=== PATIENT | female | born 1965 | race Caucasian/White ===

== ENCOUNTER → 2016-06-21 | Outpatient (CLI) | payer BC ==
[2016-06-21 15:45] LABS: ALT 36 U/L (9-52); AST 28 U/L (14-36); Alkaline Phosphatase 47 U/L (38-126); Anion Gap 14 mmol/L; Blood Urea Nitrogen 22 mg/dL (7-17); Calcium 10.1 mg/dL (8.4-10.2); Carbon Dioxide 28 mmol/L (22-30); Chloride 102 mmol/L (98-107); Glucose 96 mg/dL (74-99); Non-African American GFR(MDRD) >60 (>60 ml/min/1.73 sqM); Potassium 3.8 mmol/L (3.5-5.1); Sodium 144 mmol/L (137-145); Total Bilirubin 0.6 mg/dL (0.2-1.3); Total Protein 8.4 g/dL (6.3-8.2)
[2016-06-21 16:01] LABS: Follicle Stimulating Hormone 55.6 mIU/mL
[2016-06-22 15:47] LABS: Mis test requested (Blood) C-TELOPEPTIDE (CTx)
[2016-06-23 18:47] LABS: Creatinine Urine Random 26.1 mg/dL (20.0-320.0)
== END | disposition home or self-care (01) ==
LOC: LABWHC1 14:37
PROVIDERS: ATTEND Internal Medicine Endocrinology, Diabetes & Metabolism
DX: M80.80XA Other osteoporosis with current pathological fracture, unspecified site, initial encounter for fracture (principal); Z78.0 Asymptomatic menopausal state
CPT/HCPCS: 36415; 80053; 82306; 82523; 83001; 83970; 84443

== ENCOUNTER → 2016-08-23 | Outpatient (CLI) | payer BC ==
[2016-08-23 13:51] LABS: ALT 36 U/L (9-52); AST 29 U/L (14-36); Alkaline Phosphatase 62 U/L (38-126); Anion Gap 11 mmol/L; Blood Urea Nitrogen 29 mg/dL (7-17); Calcium 10.6 mg/dL (8.4-10.2); Carbon Dioxide 26 mmol/L (22-30); Chloride 103 mmol/L (98-107); Glucose 82 mg/dL (74-99); Non-African American GFR(MDRD) >60 (>60 ml/min/1.73 sqM); Potassium 4.2 mmol/L (3.5-5.1); Sodium 140 mmol/L (137-145); Total Bilirubin 0.5 mg/dL (0.2-1.3); Total Protein 7.7 g/dL (6.3-8.2)
== END | disposition home or self-care (01) ==
LOC: LABWHC1 12:46
PROVIDERS: ATTEND Internal Medicine Endocrinology, Diabetes & Metabolism
DX: M80.80XA Other osteoporosis with current pathological fracture, unspecified site, initial encounter for fracture (principal); Z78.0 Asymptomatic menopausal state
CPT/HCPCS: 36415; 80053; 83970

== ENCOUNTER → 2016-08-23 | Outpatient (CLI) | payer BC ==
[2016-08-23 13:42] LABS: Basophils % (A) 0 %; CH 32.4; CHCM 34.1; Eosinophils # (A) 0.1 k/uL (0-0.7); Eosinophils % (A) 1 %; HCT 38.1 % (34.0-46.0); HDW 2.08; HGB 13.2 gm/dL (11.4-16.0); Luc # (Auto) 0.13; Luc % (Auto) 2; Lymphocytes # (A) 2.2 k/uL (1.0-4.8); Lymphocytes % (A) 29 %; MCH 32.9 pg (25.0-35.0); MCHC 34.6 g/dL (31.0-37.0); MCV 95.3 fL (80.0-100.0); Monocytes # (A) 0.4 k/uL (0-1.0); Monocytes % (A) 6 %; Neutrophils # (A) 4.7 k/uL (1.3-7.7); Neutrophils % (A) 63 %; RDW 12.8 % (11.5-15.5); WBC 7.5 k/uL (3.8-10.6); WBC (Perox) 7.63
[2016-08-23 13:59] LABS: Appearance,Urine Clear (Clear); Bilirubin,Urine Negative (Negative); Glucose,Urine (UA) Negative (Negative); Ketones,Urine Negative (Negative); Leukocyte Esterase,Urine Negative (Negative); Nitrite,Urine Negative (Negative); PH, Urine 6.5 (5.0-8.0); Protein,Urine Negative (Negative); Specific Gravity,Urine 1.008 (1.001-1.035); UA Billing (MACRO vs. MICRO) CHEM; Urobilinogen,Urine <2.0 mg/dL (<2.0)
[2016-08-23 19:20] LABS: ANA w/Reflex to Titer NEGATIVE (NEGATIVE); RNP AB Interpretation NEGATIVE (NEGATIVE)
[2016-08-27 11:22] LABS: Immunofixation, Serum Interp see coimments
== END | disposition home or self-care (01) ==
LOC: LABWHC1 12:43
PROVIDERS: ATTEND Dermatology Clinical & Laboratory Dermatological Immunology
DX: L93.1 Subacute cutaneous lupus erythematosus (principal)
CPT/HCPCS: 36415; 81003; 84165; 85025; 86038; 86140; 86147; 86225; 86235; 86334; 87086

== ENCOUNTER → 2016-11-05 | Outpatient (CLI) | payer BC ==
[2016-11-05 16:21] LABS: ALT 36 U/L (9-52); AST 28 U/L (14-36); Alkaline Phosphatase 62 U/L (38-126); Anion Gap 9 mmol/L; Blood Urea Nitrogen 26 mg/dL (7-17); Calcium 10.1 mg/dL (8.4-10.2); Carbon Dioxide 28 mmol/L (22-30); Chloride 103 mmol/L (98-107); Glucose 69 mg/dL (74-99); Non-African American GFR(MDRD) >60 (>60 ml/min/1.73 sqM); Potassium 4.3 mmol/L (3.5-5.1); Sodium 140 mmol/L (137-145); Total Bilirubin 0.5 mg/dL (0.2-1.3); Total Protein 7.7 g/dL (6.3-8.2)
== END | disposition home or self-care (01) ==
LOC: LABWHC1 15:35
PROVIDERS: ATTEND Internal Medicine Endocrinology, Diabetes & Metabolism
DX: M81.0 Age-related osteoporosis without current pathological fracture (principal)
CPT/HCPCS: 36415; 80053; 82306

== ENCOUNTER → 2017-03-09 | Outpatient (CLI) | payer BC ==
[2017-03-09 13:18] LABS: ALT 32 U/L (9-52); AST 30 U/L (14-36); Albumin 4.9 g/dL (3.5-5.0); Alkaline Phosphatase 62 U/L (38-126); Anion Gap 11 mmol/L; Blood Urea Nitrogen 19 mg/dL (7-17); Calcium 10.7 mg/dL (8.4-10.2); Carbon Dioxide 30 mmol/L (22-30); Chloride 102 mmol/L (98-107); Glucose 92 mg/dL (74-99); Sodium 143 mmol/L (137-145); Total Bilirubin 0.5 mg/dL (0.2-1.3); Total Protein 7.9 g/dL (6.3-8.2)
[2017-03-09 13:21] LABS: Potassium 4.3 mmol/L (3.5-5.1)
== END | disposition home or self-care (01) ==
LOC: LABWHC1 12:13
PROVIDERS: ATTEND Internal Medicine Endocrinology, Diabetes & Metabolism
DX: M81.0 Age-related osteoporosis without current pathological fracture (principal)
CPT/HCPCS: 36415; 80053

== ENCOUNTER → 2017-05-04 | Outpatient (CLI) | payer BC ==
[2017-05-04 12:30] LABS: ALT 30 U/L (9-52); AST 30 U/L (14-36); Albumin 4.6 g/dL (3.5-5.0); Alkaline Phosphatase 54 U/L (38-126); Anion Gap 11 mmol/L; Blood Urea Nitrogen 21 mg/dL (7-17); Calcium 10.1 mg/dL (8.4-10.2); Carbon Dioxide 29 mmol/L (22-30); Chloride 102 mmol/L (98-107); Glucose 111 mg/dL (74-99); Potassium 4.2 mmol/L (3.5-5.1); Sodium 142 mmol/L (137-145); Total Bilirubin 0.5 mg/dL (0.2-1.3); Total Protein 7.6 g/dL (6.3-8.2)
[2017-05-04 16:58] LABS: Vitamin D 25 Hydroxy 54.6 ng/mL (30.0-100.0)
[2017-05-04 17:12] LABS: Parathyroid Hormone Intact 24.6 pg/mL (14.0-72.0)
== END | disposition home or self-care (01) ==
LOC: LABWHC1 11:51
PROVIDERS: ATTEND Internal Medicine Endocrinology, Diabetes & Metabolism
DX: M80.80XA Other osteoporosis with current pathological fracture, unspecified site, initial encounter for fracture (principal)
CPT/HCPCS: 36415; 80053; 82306; 83970

== ENCOUNTER → 2017-08-06 | Outpatient (CLI) | payer BC ==
[2017-08-06 08:45] LABS: Basophils % (A) 0 %; Eosinophils # (A) 0.1 k/uL (0-0.7); Eosinophils % (A) 2 %; HCT 36.6 % (34.0-46.0); HGB 12.4 gm/dL (11.4-16.0); Lymphocytes # (A) 1.7 k/uL (1.0-4.8); Lymphocytes % (A) 35 %; MCH 32.2 pg (25.0-35.0); MCHC 33.8 g/dL (31.0-37.0); Mean Platelet Volume 6.7; Monocytes # (A) 0.3 k/uL (0-1.0); Monocytes % (A) 6 %; Neutrophils # (A) 2.8 k/uL (1.3-7.7); Neutrophils % (A) 56 %; Platelet Count 232 k/uL (150-450); RBC 3.85 m/uL (3.80-5.40); RDW 12.4 % (11.5-15.5)
[2017-08-06 08:49] LABS: ALT 29 U/L (9-52); AST 30 U/L (14-36); Albumin 4.5 g/dL (3.5-5.0); Alkaline Phosphatase 43 U/L (38-126); Anion Gap 10 mmol/L; Blood Urea Nitrogen 29 mg/dL (7-17); Calcium 9.8 mg/dL (8.4-10.2); Carbon Dioxide 29 mmol/L (22-30); Chloride 103 mmol/L (98-107); Cholesterol 210 mg/dL (<200); Glucose 86 mg/dL (74-99); HDL Cholesterol 67 mg/dL (40-60); LDL Cholesterol,Calculated 131 mg/dL (0-99); Potassium 4.5 mmol/L (3.5-5.1); Sodium 142 mmol/L (137-145); Total Bilirubin 0.6 mg/dL (0.2-1.3); Total Protein 7.1 g/dL (6.3-8.2); Triglycerides 62 mg/dL (<150)
== END | disposition home or self-care (01) ==
LOC: LABWHC1 08:08
PROVIDERS: ATTEND Internal Medicine Endocrinology, Diabetes & Metabolism
DX: Z00.00 Encounter for general adult medical examination without abnormal findings (principal); R03.0 Elevated blood-pressure reading, without diagnosis of hypertension; M81.0 Age-related osteoporosis without current pathological fracture
CPT/HCPCS: 36415; 80053; 80061; 82306; 84443; 85025

== ENCOUNTER → 2017-09-27 | Outpatient (CLI) | payer BC ==
--- NOTE | 2017-10-07 11:52 | MM ---
Reason for exam: screening (asymptomatic). Last mammogram was performed 2 years and 4 months ago. History: Patient is postmenopausal. Family history of breast cancer in sister at age 55 and breast cancer in 2 maternal aunts. Excisional biopsy of the right breast, 1989. Physical Findings: A clinical breast exam by your physician is recommended on an annual basis and results should be correlated with mammographic findings. MG 3D Screening Mammo W/Cad Bilateral CC and MLO view(s) were taken. Prior study comparison: June 03, 2015, mammogram. June 01, 2014, mammogram. The breast tissue is extremely dense which could obscure a lesion on mammography. There is chronic nodularity bilaterally. No significant changes when compared with prior studies. ASSESSMENT: Benign, BI-RAD 2 RECOMMENDATION: Routine screening mammogram of both breasts in 1 year.
== END | disposition home or self-care (01) ==
LOC: RADMAMWWP 08:53
PROVIDERS: ATTEND Family Medicine
DX: Z12.31 Encounter for screening mammogram for malignant neoplasm of breast (principal)
CPT/HCPCS: 77063; 77067

== ENCOUNTER → 2018-01-30 | Outpatient (CLI) | payer BC ==
[2018-01-30 18:45] LABS: Albumin 4.7 g/dL (3.80-4.90); Albumin/Globulin Ratio 2.24 (1.20-2.10); Anion Gap 7.2 mmol/L (4.00-12.00); Calcium 9.8 mg/dL (8.7-10.3); Carbon Dioxide 27.8 mmol/L (21.6-31.8); Globulin 2.1 g/dL (2.1-3.7); Potassium 4.1 mmol/L (3.5-5.5); Total Bilirubin 0.4 mg/dL (0.2-1.2); Total Protein 6.8 g/dL (6.2-8.2)
[2018-01-30 18:48] LABS: Vitamin D 25 Hydroxy 46.3 ng/mL (30.0-100.0)
[2018-01-30 20:01] LABS: C-Peptide 1.69 ng/mL (0.81-3.85)
== END | disposition home or self-care (01) ==
LOC: LABWHC1 12:25
PROVIDERS: ATTEND Internal Medicine Endocrinology, Diabetes & Metabolism
DX: M81.0 Age-related osteoporosis without current pathological fracture (principal)
CPT/HCPCS: 36415; 80053; 82306; 84443; 84681

== ENCOUNTER → 2018-02-12 | Outpatient (CLI) | payer BC | LOC: LABWHC1 15:00 | PROVIDERS: ATTEND Internal Medicine Endocrinology, Diabetes & Metabolism | DX: M81.0 Age-related osteoporosis without current pathological fracture (principal) | CPT/HCPCS: 36415 ==

== ENCOUNTER → 2018-06-11 | Outpatient (CLI) | payer BC ==
--- NOTE | 2018-06-11 09:26 | BD ---
EXAMINATION TYPE: Axial Bone Density DATE OF EXAM: 06/11/2018 COMPARISON: NONE CLINICAL HISTORY: M 80.0 Height: 65 IN Weight: 138 LBS RISK FACTORS HISTORY OF: Surgery to Wrist (left): YES ARTHROPLASTY When: 2012 Family History of Osteoporosis: YES MOTHER Active: YES Postmenopausal woman: AGE 49 MEDICATIONS: Osteoporosis Medications: TYMLOS INJECTIONS DAILY INJECTIONS Which medication: TYMLOS INJECTIONS DAILY How Lon YEARS Additional Medications: CALCIUM, VIT D, TYMLOS DAILY INJECTION, MUSCLE RELAXER, MILOXICAM 15 MG EXAM MEASUREMENTS: Bone mineral densitometry was performed using the [employer] System. Bone mineral density as measured about the Lumbar spine is: ----- L1-L4(G/cm2): 1.124 T Score Values are as follows: ----- L2: -1.1 ----- L3: -0.4 ----- L4: -0.6 ----- L1-L4: -0.5 Bone mineral density BASELINE Bone mineral density about the R hip (g/cm2): 0.883 Bone mineral density about the L hip (g/cm2): 0.844 T Score values are as follows: -----R Neck: -1.1 -----L Neck: -1.4 -----R Total: -0.7 -----L Total: -0.9 Bone mineral density BASELINE IMPRESSION: Osteopenia (T Score between -2.5 and -1). There is slightly increased risk of fracture and the patient may be considered for treatment. Re-Screen 2-5 years. NOTE: T-SCORE=SD OF THE YOUNG ADULT MEAN.
== END | disposition home or self-care (01) ==
LOC: RADBDWWP 07:07
PROVIDERS: ATTEND Internal Medicine Endocrinology, Diabetes & Metabolism
DX: M85.851 Other specified disorders of bone density and structure, right thigh (principal); M85.852 Other specified disorders of bone density and structure, left thigh; M85.88 Other specified disorders of bone density and structure, other site
CPT/HCPCS: 77080

== ENCOUNTER → 2018-07-25 | Outpatient (CLI) | payer BC ==
[2018-07-25 16:15] LABS: Albumin 4.8 g/dL (3.80-4.90); Albumin/Globulin Ratio 2.09 (1.60-3.17); Anion Gap 9.5 mmol/L (4.00-12.00); Calcium 10.5 mg/dL (8.7-10.3); Carbon Dioxide 29.5 mmol/L (21.6-31.8); Globulin 2.3 g/dL (1.6-3.3); Potassium 4.2 mmol/L (3.5-5.5); Total Bilirubin 0.4 mg/dL (0.2-1.2); Total Protein 7.1 g/dL (6.2-8.2)
== END | disposition home or self-care (01) ==
LOC: LABWHC1 10:22
PROVIDERS: ATTEND Internal Medicine Endocrinology, Diabetes & Metabolism
DX: M81.0 Age-related osteoporosis without current pathological fracture (principal)
CPT/HCPCS: 36415; 80053; 82306; 82523

== ENCOUNTER → 2018-09-05 | Outpatient (CLI) | payer BC ==
[2018-09-05 18:09] LABS: African American GFR (CKD) 96.9 (60.0-200.0); Albumin 4.7 g/dL (3.80-4.90); Albumin/Globulin Ratio 2.14 (1.60-3.17); Anion Gap 6.5 mmol/L (4.00-12.00); BUN/Creat Ratio 33.75 Ratio (12.00-20.00); Calcium 9.8 mg/dL (8.7-10.3); Carbon Dioxide 30.5 mmol/L (21.6-31.8); Globulin 2.2 g/dL (1.6-3.3); Potassium 4.2 mmol/L (3.5-5.5); Total Bilirubin 0.5 mg/dL (0.2-1.2); Total Protein 6.9 g/dL (6.2-8.2)
== END | disposition home or self-care (01) ==
LOC: LABWHC1 14:12
PROVIDERS: ATTEND Internal Medicine Endocrinology, Diabetes & Metabolism
DX: E83.52 Hypercalcemia (principal)
CPT/HCPCS: 36415; 80053

== ENCOUNTER → 2018-10-07 | Outpatient (CLI) | payer BC ==
[2018-10-07 07:48] LABS: Basophils % (A) 1 %; Eosinophils # (A) 0.1 k/uL (0-0.7); Eosinophils % (A) 2 %; HCT 37.7 % (34.0-46.0); HGB 12.8 gm/dL (11.4-16.0); Lymphocytes # (A) 2.7 k/uL (1.0-4.8); Lymphocytes % (A) 54 %; MCH 32.2 pg (25.0-35.0); MCHC 33.9 g/dL (31.0-37.0); Monocytes # (A) 0.3 k/uL (0-1.0); Monocytes % (A) 7 %; Neutrophils # (A) 1.6 k/uL (1.3-7.7); Neutrophils % (A) 33 %; Platelet Count 259 k/uL (150-450); RBC 3.97 m/uL (3.80-5.40); RDW 12.7 % (11.5-15.5); WBC 4.9 k/uL (3.8-10.6)
[2018-10-07 08:08] LABS: Cholesterol 217 mg/dL (<200); HDL Cholesterol 52 mg/dL (40-60); LDL Cholesterol,Calculated 148 mg/dL (0-99); Triglycerides 85 mg/dL (<150)
--- NOTE | 2018-10-07 10:52 | MM ---
Reason for exam: screening (asymptomatic). Last mammogram was performed 1 year ago. History: Patient is postmenopausal. Family history of breast cancer in sister at age 55 and breast cancer in 2 maternal aunts. Excisional biopsy of the right breast, 1989. Took hormonal contraceptives for 3 years. Physical Findings: A clinical breast exam by your physician is recommended on an annual basis and results should be correlated with mammographic findings. MG 3D Screening Mammo W/Cad Bilateral CC and MLO view(s) were taken. Prior study comparison: September 27, 2017, bilateral MG 3d screening mammo w/cad. June 03, 2015, mammogram. The breast tissue is extremely dense which could obscure a lesion on mammography. There are benign appearing round calcifications in the right breast. There is no discrete abnormality. ASSESSMENT: Benign, BI-RAD 2 RECOMMENDATION: Routine screening mammogram of both breasts in 1 year.
== END | disposition home or self-care (01) ==
LOC: RADMAMWWP 07:11
PROVIDERS: ATTEND Family Medicine
DX: Z12.31 Encounter for screening mammogram for malignant neoplasm of breast (principal); E78.5 Hyperlipidemia, unspecified; R01.1 Cardiac murmur, unspecified
CPT/HCPCS: 77063; 77067; 80061; 85025

== ENCOUNTER → 2019-07-24 | Outpatient (CLI) | payer BC ==
[2019-07-24 17:29] LABS: African American GFR (CKD) 96.2 (60.0-200.0); Albumin 4.9 g/dL (3.80-4.90); Albumin/Globulin Ratio 2.23 (1.60-3.17); Anion Gap 8.4 mmol/L (4.00-12.00); BUN/Creat Ratio 17.5 Ratio (12.00-20.00); Calcium 9.5 mg/dL (8.7-10.3); Carbon Dioxide 28.6 mmol/L (21.6-31.8); Globulin 2.2 g/dL (1.6-3.3); Potassium 4.1 mmol/L (3.5-5.5); Total Bilirubin 0.5 mg/dL (0.2-1.2); Total Protein 7.1 g/dL (6.2-8.2)
== END | disposition home or self-care (01) ==
LOC: LABWHC1 10:06
PROVIDERS: ATTEND Internal Medicine Endocrinology, Diabetes & Metabolism
DX: M81.0 Age-related osteoporosis without current pathological fracture (principal)
CPT/HCPCS: 36415; 80053; 82306; 82523; 83970; 84443

== ENCOUNTER → 2019-09-09 | Day surgery (SDC) | payer BC ==
[2019-09-07 10:18] VITALS: BMI 20.9
[~2019-09-09] MED LIST: LIDOCAINE 1% (10MG/ML) FOR IV START INTRADERMA ONE; LIDOCAINE 1% INJ 10MG/ML (20 ML MDV) ONE; PROPOFOL 10 MG/ML 20 ML VIAL IV ONE
[2019-09-09 09:18] VITALS: RESP 16; TEMP 97.6
[2019-09-09] MEDS: LACTATED RINGERS 1,000 ML IV SCH ×2 (09:32→09:49)
--- NOTE | 2019-09-09 10:05 | P.PCN ---
Date of Procedure: 09/09/19 Procedure(s) Performed: BRIEF HISTORY: Patient is a 54-year-old pleasant female scheduled for an elective colonoscopy as a part of evaluation of prior history of colon polyps. Last colonoscopy was 5 years ago. PROCEDURE PERFORMED: Colonoscopy. PREOPERATIVE DIAGNOSIS: History of colon polyps. IV sedation per Anesthesia. PROCEDURE: After informed consent was obtained, the patient, was brought into the endoscopy unit. IV sedation was administered by Anesthesia under continuous monitoring. Digital rectal examination was normal. Initially the Olympus CF-160 flexible video colonoscope was then inserted in the rectum, gradually advanced into the cecum without any difficulty. Careful examination was performed as the scope was gradually being withdrawn. Ileocecal valve and the appendiceal orifice were visualized and appeared normal. Prep was excellent. Mucosa of the cecum, ascending colon, transverse colon, descending colon, sigmoid colon, and rectum appeared normal. Retroflexion was performed in the rectum and no lesions were seen. Scattered sigmoid diverticulosis. The patient tolerated the procedure well. IMPRESSION: Normal-appearing colon from rectum to cecum with no evidence of colorectal neoplasia Scattered sigmoid diverticulosis. RECOMMENDATIONS: Findings of this examination were discussed with the patient as well as a family. She was advised to have a repeat screening colonoscopy in 5 years from now because of prior history of colon polyps..
[2019-09-09 10:23] VITALS: BP 105/65; PULSE 58
== END ==
LOC: ORWHC2ENDO 08:50
PROVIDERS: ATTEND Internal Medicine Gastroenterology
DX: Z12.11 Encounter for screening for malignant neoplasm of colon (principal); K57.30 Diverticulosis of large intestine without perforation or abscess without bleeding; Z86.010 Personal history of colon polyps; Z96.60 Presence of unspecified orthopedic joint implant; Z79.1 Long term (current) use of non-steroidal anti-inflammatories (NSAID); Z88.1 Allergy status to other antibiotic agents
CPT/HCPCS: J2001; J2704; G0105

== ENCOUNTER → 2019-10-09 | Outpatient (CLI) | payer BC ==
--- NOTE | 2019-10-13 08:04 | MM ---
Reason for exam: screening (asymptomatic). Last mammogram was performed 1 year ago. History: Patient is postmenopausal. Family history of breast cancer in sister at age 55 and breast cancer in 2 maternal aunts. Excisional biopsy of the right breast, 1989. Took hormonal contraceptives for 3 years. Physical Findings: A clinical breast exam by your physician is recommended on an annual basis and results should be correlated with mammographic findings. MG 3D Screening Mammo W/Cad Bilateral CC and MLO view(s) were taken. Prior study comparison: October 07, 2018, bilateral MG 3d screening mammo w/cad. September 27, 2017, bilateral MG 3d screening mammo w/cad. The breast tissue is heterogeneously dense. This may lower the sensitivity of mammography. No significant changes when compared with prior studies. ASSESSMENT: Negative, BI-RAD 1 RECOMMENDATION: Routine screening mammogram of both breasts in 1 year. Patient should continue monthly self breast exams. A negative report should not preclude additional follow up of suspicious palpable abnormalities.
== END | disposition home or self-care (01) ==
LOC: RADMAMWWP 15:56
PROVIDERS: ATTEND Family Medicine
DX: Z12.31 Encounter for screening mammogram for malignant neoplasm of breast (principal)
CPT/HCPCS: 77063; 77067

== ENCOUNTER → 2020-09-03 | Outpatient (CLI) | payer BC ==
[2020-09-03 12:10] LABS: African American GFR (CKD) 95.5 (60.0-200.0); Albumin 4.6 g/dL (3.80-4.90); Anion Gap 7.6 mmol/L (4.00-12.00); BUN/Creat Ratio 21.25 Ratio (12.00-20.00); Calcium 9.9 mg/dL (8.7-10.3); Carbon Dioxide 30.4 mmol/L (21.6-31.8); Globulin 2.3 g/dL (1.6-3.3); Non-African American GFR(CKD) 82.4 (60.0-200.0); Potassium 4.5 mmol/L (3.5-5.5); Total Bilirubin 0.8 mg/dL (0.3-1.2); Total Protein 6.9 g/dL (6.2-8.2)
== END | disposition home or self-care (01) ==
LOC: LABWHC1 08:35
PROVIDERS: ATTEND Internal Medicine Endocrinology, Diabetes & Metabolism
DX: M81.0 Age-related osteoporosis without current pathological fracture (principal)
CPT/HCPCS: 36415; 80053; 82306; 82523; 83970; 84443

== ENCOUNTER → 2021-02-07 | Outpatient (CLI) | payer BC ==
--- NOTE | 2021-02-07 10:52 | BD ---
EXAMINATION TYPE: Axial Bone Density DATE OF EXAM: 02/07/2021 COMPARISON: NONE CLINICAL HISTORY: M80.0 Known osteoporosis Height: 5 FT 5 IN Weight: 125 FRAX RISK QUESTIONS: Alcohol (3 or more units per day): NO Family History (Parent hip fracture): NO Glucocorticoids (More than 3mos): NO (Ex: prednisone, prednisolone, methylprednisolone, dexamethasone, and hydrocortisone). History of Fracture in Adulthood: NO Secondary Osteoporosis: 1. Type 1 Diabetes: NO 2. Hyperthyroidism: NO 3. Menopause before 45: NO 4. Malnutrition: NO 5. Chronic liver disease: NO Rheumatoid Arthritis: NO Current Tobacco Use: NO RISK FACTORS HISTORY OF: Surgery to Spine/Hip(right/left)/Wrist (right/left): LEFT WRIST When: 2012 Family History of Osteoporosis: YES Active: YES Diet low in dairy products/other sources of calcium: NO Postmenopausal woman: YES Take estrogen and/or progesterone medications: NO Lost more than 2 inches in height since high school: YES Frequent falls: NO Poor Health: GOOD Hyperparathyroidism: NO Adrenal Insufficiency: NO MEDICATIONS: Additional Medications: MELOXICAM Additional History: EXAM MEASUREMENTS: Bone mineral densitometry was performed using the [employer] System. Bone mineral density as measured about the Lumbar spine is: ----- L1-L4(G/cm2): 1.165 T Score Values are as follows: ----- L2: -0.7 ----- L3: -0.1 ----- L4: 0.1 ----- L1-L4: -0.1 Bone mineral density has: INCREASED 4.4 % since study of: 2018 Bone mineral density about the R hip (g/cm2): 0.904 Bone mineral density about the L hip (g/cm2): 0.874 T Score values are as follows: -----R Neck: -1.0 -----L Neck: -1.2 -----R Total: -0.5 -----L Total: -0.8 Bone mineral density has: INCREASED 2.0 % since study of: 2019 IMPRESSION: Osteopenia (T Score between -2.5 and -1). There is slightly increased risk of fracture and the patient may be considered for treatment. Re-Screen 2-5 years. NOTE: T-SCORE=SD OF THE YOUNG ADULT MEAN.
== END | disposition home or self-care (01) ==
LOC: RADBDWWP 07:12
PROVIDERS: ATTEND Internal Medicine Endocrinology, Diabetes & Metabolism
DX: M85.89 Other specified disorders of bone density and structure, multiple sites (principal); Z78.0 Asymptomatic menopausal state
CPT/HCPCS: 77080

== ENCOUNTER → 2021-03-11 | Outpatient (CLI) | payer BC | END | disposition home or self-care (01) | LOC: LABWHC1 09:40 | PROVIDERS: ATTEND Internal Medicine Endocrinology, Diabetes & Metabolism | DX: E83.39 Other disorders of phosphorus metabolism (principal) | CPT/HCPCS: 36415; 80307; 84207 ==

== ENCOUNTER → 2021-04-24 | Outpatient (CLI) | payer BC ==
--- NOTE | 2021-04-25 10:00 | MM ---
Reason for exam: screening (asymptomatic). Last mammogram was performed 1 year and 7 months ago. History: Patient is postmenopausal. Family history of breast cancer in sister at age 55 and breast cancer in 2 maternal aunts. Excisional biopsy of the right breast, 1989. Took hormonal contraceptives for 3 years. Physical Findings: A clinical breast exam by your physician is recommended on an annual basis and results should be correlated with mammographic findings. MG 3D Screening Mammo W/Cad Bilateral CC and MLO view(s) were taken. Prior study comparison: October 09, 2019, bilateral MG 3d screening mammo w/cad. October 07, 2018, bilateral MG 3d screening mammo w/cad. The breast tissue is heterogeneously dense. This may lower the sensitivity of mammography. Benign appearing bilateral calcifications. No significant changes when compared with prior studies. ASSESSMENT: Benign, BI-RAD 2 RECOMMENDATION: Routine screening mammogram of both breasts in 1 year.
== END | disposition home or self-care (01) ==
LOC: RADMAMWWP 07:02
PROVIDERS: ATTEND Family Medicine
DX: Z12.31 Encounter for screening mammogram for malignant neoplasm of breast (principal); Z78.0 Asymptomatic menopausal state; Z80.3 Family history of malignant neoplasm of breast
CPT/HCPCS: 77063; 77067

== ENCOUNTER → 2021-08-24 | Outpatient (CLI) | payer BC ==
--- NOTE | 2021-08-24 13:07 | US ---
EXAMINATION TYPE: US transvaginal DATE OF EXAM: 08/24/2021 COMPARISON: NONE CLINICAL HISTORY: N95.0 POST MENOPAUSAL BLEEDING. TECHNIQUE: . Transvaginal sonographic images were obtained per physician's order. Date of LMP: na EXAM MEASUREMENTS: Uterus: 5.0 x 3.2 x 5.0 cm Endometrial Stripe: 0.2 cm Right Ovary: 1.4 x 0.7 x 1.2 cm Left Ovary: 17 x 0.9 x 1.1 cm 1. Uterus: anteverted seen with a [id number] calcified fibroid within the right mid uterine body 2. Endometrium: wnl 3. Right Ovary: wnl 4. Left Ovary: wnl 5. Bilateral Adnexa: wnl 6. Posterior cul-de-sac: no free fluid seen IMPRESSION: Calcified fibroid
== END | disposition home or self-care (01) ==
LOC: RADUSWWP 12:16
PROVIDERS: ATTEND Family Medicine
DX: D25.9 Leiomyoma of uterus, unspecified (principal)
CPT/HCPCS: 76830

== ENCOUNTER → 2021-10-21 | Outpatient (CLI) | payer BC ==
[2021-10-21 12:14] LABS: African American GFR (CKD) 103.1 (60.0-200.0); Albumin 4.5 g/dL (3.8-4.9); Albumin/Globulin Ratio 2.11 (1.60-3.17); Anion Gap 11.3 mmol/L (10.00-18.00); BUN/Creat Ratio 19.14 Ratio (12.00-20.00); Blood Urea Nitrogen 14.3 mg/dL (9.0-27.0); Carbon Dioxide 23.9 mmol/L (20.0-27.5); Globulin 2.1 g/dL (1.6-3.3); HDL Cholesterol 75.3 mg/dL (40.00-60.00); Non-African American GFR(CKD) 88.9 (60.0-200.0); Potassium 4.2 mmol/L (3.5-5.5); Total Bilirubin 0.3 mg/dL (0.30-1.20); Total Protein 6.6 g/dL (6.2-8.2); Triglycerides 39.5 mg/dL (0.00-149.00)
[2021-10-21 12:24] LABS: Chol/HDL Ratio 3.08 Ratio
== END | disposition home or self-care (01) ==
LOC: LABWHC1 09:02
PROVIDERS: ATTEND Family Medicine
DX: M81.0 Age-related osteoporosis without current pathological fracture (principal)
CPT/HCPCS: 36415; 80053; 80061; 82306; 83721

== ENCOUNTER → 2022-02-24 | Outpatient (CLI) | payer BC ==
[2022-02-24 17:03] LABS: African American GFR (CKD) 94.9 (60.0-200.0); Albumin 4.4 g/dL (3.8-4.9); Albumin/Globulin Ratio 1.91 (1.60-3.17); Anion Gap 9.4 mmol/L (10.00-18.00); BUN/Creat Ratio 18.25 Ratio (12.00-20.00); Blood Urea Nitrogen 14.6 mg/dL (9.0-27.0); Calcium 9.2 mg/dL (8.7-10.3); Carbon Dioxide 25.6 mmol/L (20.0-27.5); Globulin 2.3 g/dL (1.6-3.3); Non-African American GFR(CKD) 81.8 (60.0-200.0); Potassium 4.6 mmol/L (3.5-5.5); Total Bilirubin 0.3 mg/dL (0.30-1.20); Total Protein 6.7 g/dL (6.2-8.2)
== END | disposition home or self-care (01) ==
LOC: LABWHC1 09:23
PROVIDERS: ATTEND Internal Medicine Endocrinology, Diabetes & Metabolism
DX: M81.0 Age-related osteoporosis without current pathological fracture (principal)
CPT/HCPCS: 36415; 80053; 82523; 82652; 84443

== ENCOUNTER → 2022-06-06 | Outpatient (CLI) | payer BC ==
--- NOTE | 2022-06-06 12:25 | MM ---
Reason for Exam: Screening (asymptomatic). Last mammogram was performed 1 year(s) and 1 month(s) ago. Patient History: Menarche at age 13. First Full-Term at age 28. Postmenopausal. Patient used Hormonal Contraceptives for 3 years. 1989, Excisional Biopsy on the Right side. Maternal aunt had breast cancer, age 75. Maternal aunt had breast cancer, age 80. Sister had breast cancer, age 55. Risk Values: Shazia 5 year model risk: 2.7%. NCI Lifetime model risk: 15.9%. Prior Study Comparison: 10/07/2018 Bilateral Screening Mammogram, [facility]. 10/09/2019 Bilateral Screening Mammogram, [facility]. 04/24/2021 Bilateral Screening Mammogram, [facility]. Tissue Density: The breast tissue is heterogeneously dense. This may lower the sensitivity of mammography. Findings: Analyzed By CAD. There is no suspicious group of microcalcifications or new suspicious mass in either breast. Benign-appearing calcifications within both breasts. Overall Assessment: Benign, BI-RAD 2 Management: Screening Mammogram of both breasts in 1 year. A clinical breast exam by your physician is recommended on an annual basis and results should be correlated with mammographic findings. Electronically signed and approved by: Michel Horton D.O.
== END | disposition home or self-care (01) ==
LOC: RADMAMWWP 07:20
PROVIDERS: ATTEND Family Medicine
DX: Z12.31 Encounter for screening mammogram for malignant neoplasm of breast (principal); Z78.0 Asymptomatic menopausal state; Z80.3 Family history of malignant neoplasm of breast
CPT/HCPCS: 77063; 77067

== ENCOUNTER → 2022-08-11 | Outpatient (CLI) | payer BC ==
[2022-08-11 23:27] LABS: ALT 27 U/L (8-49); AST 31 U/L (13-35); Albumin 4.7 d/dL (3.8-4.9); Albumin/Globulin Ratio 1.81 Ratio (1.60-3.17); Alkaline Phosphatase 43 U/L (41-126); BUN/Creat Ratio 22.75 Ratio (12.00-20.00); Blood Urea Nitrogen 18.2 mg/dL (9.0-27.0); Calcium 10.3 mg/dL (8.7-10.3); Carbon Dioxide 25.5 mmol/L (21.6-31.8); Chloride 103 mmol/L (96-109); Globulin 2.6 d/dL (1.6-3.3); Glucose 81 mg/dL (70-110); Potassium 4.2 mmol/L (3.5-5.5); Sodium 141 mmol/L (135-145); Total Bilirubin 0.4 mg/dL (0.3-1.2); Total Protein 7.3 d/dL (6.2-8.2)
== END | disposition home or self-care (01) ==
LOC: LABWHC1 10:18
PROVIDERS: ATTEND Internal Medicine Endocrinology, Diabetes & Metabolism
DX: M81.0 Age-related osteoporosis without current pathological fracture (principal)
CPT/HCPCS: 36415; 80053; 82306; 82523; 83970; 84443

== ENCOUNTER → 2023-01-19 | Outpatient (CLI) | payer BC ==
[2023-01-21 11:07] LABS: Alternaria alternata IgE <0.10 kU/L; Aspergillus fumagatus IgE <0.10 kU/L; Birch IgE <0.10 kU/L; Cat Epith & Dander IgE <0.10 kU/L; Cladosporian herbarum IgE <0.10 kU/L; Cockroach IgE <0.10 kU/L; Dermato. farinae IgE <0.10 kU/L; Dog Dander IgE <0.10 kU/L; Elm IgE <0.10 kU/L; Maple (Box Elder) IgE <0.10 kU/L; Oak IgE <0.10 kU/L; Ragweed,Common IgE <0.10 kU/L; Red Top (Bentgrass) IgE <0.10 kU/L
== END | disposition home or self-care (01) ==
LOC: LABWHC1 09:56
PROVIDERS: ATTEND Otolaryngology Otolaryngology/Facial Plastic Surgery
DX: J31.0 Chronic rhinitis (principal)
CPT/HCPCS: 36415; 82785; 86003

== ENCOUNTER → 2023-02-08 | Outpatient (CLI) | payer BC ==
--- NOTE | 2023-02-12 17:54 | BD ---
EXAMINATION TYPE: Axial Bone Density DATE OF EXAM: 02/12/2023 CLINICAL HISTORY: 57 years old Female. ICD-10 CODE: M81.0 AGE RELATED OSTEOPOROSIS Height: 65 Weight: 141.9 FRAX RISK QUESTIONS: Alcohol (3 or more units per day): no Family History (Parent hip fracture): no Glucocorticoids (More than 3mos): no (Ex: prednisone, prednisolone, methylprednisolone, dexamethasone, and hydrocortisone). History of Fracture in Adulthood: no Secondary Osteoporosis: 1. Type 1 Diabetes: no 2. Hyperthyroidism: no 3. Menopause before 45: no 4. Malnutrition: no 5. Chronic liver disease: no Rheumatoid Arthritis: no Current Tobacco Use: no RISK FACTORS HISTORY OF: Surgery to Spine/Hip(right/left)/Wrist (right/left): no Additional History: EXAM MEASUREMENTS: Bone mineral densitometry was performed using the [employer] System. Bone mineral density as measured about the Lumbar spine is: ----- L1-L4(G/cm2): 1.264 T Score Values are as follows: ----- L1: 0.9 ----- L2: -0.1 ----- L3: 0.5 ----- L4: 1.2 ----- L1-L4: 0.7 Z Score Values are as follows: ----- L1: 2.0 ----- L2: 1.0 ----- L3: 1.6 ----- L4: 2.3 ----- L1-L4: 1.8 Bone mineral density has: increased 8.5 % since study of: 2020 Bone mineral density about the R hip (g/cm2): 0.971 Bone mineral density about the L hip (g/cm2): 0.941 T Score values are as follows: -----R Neck: -0.8 -----L Neck: -1.0 -----R Total: -0.3 -----L Total: -0.5 Z Score values are as follows: -----R Neck: 0.3 -----L Neck: 0.2 -----R Total: 0.6 -----L Total: 0.3 Bone mineral density has: increased3.2 % since study of: 2020 FRAX%s: The graph provided illustrates a 6.6 % chance for a major osteoporotic fx and a 0.4% chance f or the hips probability for fx in 10 years time. IMPRESSION: Normal (Values between +1 and -1 indicate normal bone mass). However, note that measurements are bord ering on osteopenia at the left hip. Consider repeating this study in 5 years or sooner if there is s ome new clinical indication. NOTE: T-SCORE=SD OF THE YOUNG ADULT MEAN.
== END | disposition home or self-care (01) ==
LOC: RADBDWWP 07:33
PROVIDERS: ATTEND Internal Medicine Endocrinology, Diabetes & Metabolism
DX: M81.0 Age-related osteoporosis without current pathological fracture (principal)

== ENCOUNTER → 2023-02-12 | Outpatient (CLI) | payer BC ==
[2023-02-12 19:21] LABS: ALT 32 U/L (8-49); AST 24 U/L (13-35); Albumin 4.6 g/dL (3.8-4.9); Albumin/Globulin Ratio 1.84 Ratio (1.60-3.17); Alkaline Phosphatase 43 U/L (41-126); BUN/Creat Ratio 21.75 Ratio (12.00-20.00); Blood Urea Nitrogen 17.4 mg/dL (9.0-27.0); Calcium 9.4 mg/dL (8.7-10.3); Carbon Dioxide 25.2 mmol/L (21.6-31.8); Chloride 104 mmol/L (96-109); Globulin 2.5 g/dL (1.6-3.3); Glucose 81 mg/dL (70-110); Potassium 4.7 mmol/L (3.5-5.5); Sodium 139 mmol/L (135-145); Total Bilirubin 0.2 mg/dL (0.3-1.2); Total Protein 7.1 g/dL (6.2-8.2)
== END | disposition home or self-care (01) ==
LOC: LABWHC1 15:38
PROVIDERS: ATTEND Internal Medicine Endocrinology, Diabetes & Metabolism
DX: M81.0 Age-related osteoporosis without current pathological fracture (principal)
CPT/HCPCS: 36415; 80053; 82306; 82523; 83970; 84443

== ENCOUNTER → 2023-06-11 | Outpatient (CLI) | payer BC | END | disposition home or self-care (01) | LOC: RADUSWWP 06:57 | PROVIDERS: ATTEND Family Medicine | DX: Z53.9 Procedure and treatment not carried out, unspecified reason (principal) ==

== ENCOUNTER → 2023-06-11 | Outpatient (CLI) | payer BC ==
--- NOTE | 2023-06-11 17:57 | US ---
EXAMINATION TYPE: US carotid duplex BILAT DATE OF EXAM: 06/11/2023 COMPARISON: NONE CLINICAL INDICATION: Female, 57 years old with history of I65.22 LT CAROTID CALCIFIED; dental x-ray s howed plaque on the left, no h/o stroke, no symptoms TECHNIQUE: Carotid duplex ultrasound examination. Indirect Doppler criteria was utilized. FINDINGS: EXAM MEASUREMENTS: RIGHT: Peak Systolic Velocity (PSV) cm/sec ----- Right CCA: 77.0 ----- Right ICA: 70.7 ----- Right ECA: 55.9 ICA/CCA ratio: 0.9 RIGHT: End Diastole cm/sec ----- Right CCA: 27.3 ----- Right ICA: 28.7 ----- Right ECA: 10.4 LEFT: Peak Systolic Velocity (PSV) cm/sec ----- Left CCA: 80.5 ----- Left ICA: 82.3 ----- Left ECA: 54.3 ICA/CCA ratio: 1.0 LEFT: End Diastole cm/sec ----- Left CCA: 32.5 ----- Left ICA: 29.1 ----- Left ECA: 13.0 VERTEBRALS (direction of flow): Right Vertebral: Antegrade Left Vertebral: Antegrade Rhythm: Normal AGRICULTURAL APPRAISER NOTES: Mild homogeneous plaque with no significant stenosis seen IMPRESSION: 1. Mild intimal thickening in the carotid bifurcations. 2. No hemodynamically significant stenosis in the carotid arteries bilaterally based on color and gra yscale imaging as well as peak systolic velocities and ratios. Criteria for Assigning % of Stenosis / Diameter reduction (Estimation based on the indirect measurements of the internal carotid artery velocities (ICA PSV). 1. Normal (no stenosis)=ICA PSV < 125 cm/s: ratio < 2.0: ICA EDV<40 cm/s. 2. Less than 50% stenosis=ICA PSV < 125 cm/s: ratio < 2.0: ICA EDV<40 cm/s. 3. 50 to 69% stenosis=ICA PSV of 125 to 230 cm/s: ration 2.0 ? 4.0: ICA EDV 40-100 cm/s. 4. Greater than 70% stenosis to near occlusion= ICA PSV > 230 cm/s: ratio > 4.0: ICA EDV > 100 cm/s. 5. Near occlusion= ICA PSV velocities may be low or undetectable: variable ratio and ICA EDV. 6. Total occlusion=unable to detect flow.
--- NOTE | 2023-06-12 13:47 | MM ---
Reason for Exam: Screening (asymptomatic). Last screening mammogram was performed 12 month(s) ago. Patient History: Menarche at age 13. First Full-Term at age 28. Postmenopausal. Patient used Hormonal Contraceptives for 3 years. 1989, Excisional Biopsy on the Right side. Maternal aunt had breast cancer, age 75. Maternal aunt had breast cancer, age 80. Sister had breast cancer, age 55. Risk Values: Shazia 5 year model risk: 2.8%. NCI Lifetime model risk: 15.6%. Prior Study Comparison: 10/09/2019 Bilateral Screening Mammogram, [facility]. 04/24/2021 Bilateral Screening Mammogram, [facility]. 06/06/2022 Bilateral MG 3D screening mammo w/cad, [facility]. Tissue Density: The breasts are heterogeneously dense, which may obscure small masses. Findings: Analyzed By CAD. There is no suspicious group of microcalcifications or new suspicious mass in either breast. Overall Assessment: Benign, BI-RAD 2 Management: Screening Mammogram of both breasts in 1 year. . Patient should continue monthly self-breast exams. A clinical breast exam by your physician is recommended on an annual basis. This exam should not preclude additional follow-up of suspicious palpable abnormalities. Note on Shazia scores and lifetime risk: 1. A Shazia score greater than 3% is considered moderate risk. If this is the case, consider specialist referral to assess eligibility for a risk reducing agent. 2. If overall lifetime risk for the development of breast cancer is 20% or higher, the patient may qualify for future screening with alternating mammogram and breast MRI. Electronically signed and approved by: Eric Garcia M.D. Radiologis
== END | disposition home or self-care (01) ==
LOC: RADMAMWWP 06:58
PROVIDERS: ATTEND Family Medicine
DX: Z12.31 Encounter for screening mammogram for malignant neoplasm of breast (principal); I65.22 Occlusion and stenosis of left carotid artery; Z78.0 Asymptomatic menopausal state; Z80.3 Family history of malignant neoplasm of breast
CPT/HCPCS: 77063; 77067; 93880

== ENCOUNTER → 2023-06-26 | Outpatient (CLI) | payer BC ==
--- NOTE | 2023-07-06 23:56 | MR ---
EXAM: MR wrist LT wo con DATE OF EXAM: 06/26/2023 COMPARISON: None available HISTORY: Left wrist pain, Hx of wrist surgeries TECHNIQUE: Multiplanar, multisequence images of the left wrist were acquired without contrast. FINDINGS: BONES/JOINTS: Postsurgical changes relating to trapezium resection. Prominent degenerative subchondra l cystic changes within the first metacarpal base.. Normal alignment. No ulnar variance. Distal radio ulnar joint is normal. No joint effusion. LIGAMENTS: Scapholunate and lunotriquetral ligaments are normal. Extrinsic carpal ligaments are joe l. Triangular fibrocartilaginous complex is normal. TENDONS: Flexor tendons are normal. Small amount of fluid within the second and third extensor tendon sheaths, suggesting tenosynovitis.. SOFT TISSUES: Carpal tunnel is normal. Guyon's canal is normal. No bursal distention. No fluid collec tion. NEUROVASCULAR: The median nerve is normal in size, signal, and location. The ulnar nerve is normal in size, signal, and location. Vascular structures are normal OTHER: Normal. IMPRESSION: 1. Postsurgical changes relating to trapezium resection with prominent degenerative changes in the fi rst metacarpal base. 2. Suspected second and third extensor compartment tenosynovitis.
== END | disposition home or self-care (01) ==
LOC: RADMRIMAIN 18:38
PROVIDERS: ATTEND Orthopaedic Surgery Hand Surgery
DX: M18.12 Unilateral primary osteoarthritis of first carpometacarpal joint, left hand (principal); Z98.890 Other specified postprocedural states

== ENCOUNTER → 2024-08-19 | Outpatient (CLI) | payer BC ==
--- NOTE | 2024-08-19 08:53 | MM ---
Reason for Exam: Screening (asymptomatic). Last mammogram was performed 1 year(s) and 3 month(s) ago. Patient History: Menarche at age 13. First Full-Term at age 28. Postmenopausal. Patient used Hormonal Contraceptives for 3 years. 1989, Excisional Biopsy on the Right side. Maternal aunt had breast cancer, age 75. Maternal aunt had breast cancer, age 80. Sister had breast cancer, age 55. Risk Values: Shazia 5 year model risk: 3.0%. NCI Lifetime model risk: 14.9%. Prior Study Comparison: 04/24/2021 Bilateral Screening Mammogram, [facility]. 06/06/2022 Bilateral MG 3D screening mammo w/cad, [facility]. 06/11/2023 Bilateral MG 3D screening mammo w/cad, [facility]. Tissue Density: The breasts are heterogeneously dense, which may obscure small masses. Findings: Analyzed By CAD. A few scattered tiny benign oil cyst calcifications are unchanged. Low axillary tail lymph node on the right is unchanged. There is no suspicious group of microcalcifications or new suspicious mass in either breast. Overall Assessment: Benign, BI-RAD 2 Management: Screening Mammogram of both breasts in 1 year. Patient should continue monthly self-breast exams. A clinical breast exam by your physician is recommended on an annual basis. This exam should not preclude additional follow-up of suspicious palpable abnormalities. Note on Shazia scores and lifetime risk: 1. A Shazia score greater than 3% is considered moderate risk. If this is the case, consider specialist referral to assess eligibility for a risk reducing agent. 2. If overall lifetime risk for the development of breast cancer is 20% or higher, the patient may qualify for future screening with alternating mammogram and breast MRI. [facility], , 08/19/2024 8:50 AM. Electronically signed and approved by: Suki Salazar M.D. Radiologist
== END | disposition home or self-care (01) ==
LOC: RADMAMWWP 07:15
PROVIDERS: ATTEND Family Medicine
DX: Z12.31 Encounter for screening mammogram for malignant neoplasm of breast (principal); R92.333 Mammographic heterogeneous density, bilateral breasts; Z78.0 Asymptomatic menopausal state; Z80.3 Family history of malignant neoplasm of breast; Z92.0 Personal history of contraception
CPT/HCPCS: 77063; 77067

== ENCOUNTER 2024-09-04 11:11 | Day surgery (SDC) | payer BC ==
[2024-09-02 14:24] VITALS: BMI 23.3
[~2024-09-04 11:11] MED LIST changes: -LIDOCAINE 1% (10MG/ML) FOR IV START INTRADERMA ONE; +LIDOCAINE 1% (10MG/ML) FOR IV START INTRADERMA PRN; -LIDOCAINE 1% INJ 10MG/ML (20 ML MDV) ONE; -PROPOFOL 10 MG/ML 20 ML VIAL IV ONE
[2024-09-04 12:54] VITALS: TEMP 98.1
[2024-09-04] MEDS: IV FLUID CONTINUATION 1,000 ML IV ONE (12:56)
[2024-09-04] MEDS: LACTATED RINGERS 1,000 ML IV SCH (12:56)
[2024-09-04] MEDS ORDERED: PROPOFOL 10 MG/ML 20 ML VIAL IV ONE (14:07)
--- NOTE | 2024-09-04 14:24 | P.PCN ---
Date of Procedure: 09/04/24 Procedure(s) Performed: BRIEF HISTORY: Patient is a 59-year-old pleasant white female scheduled for an elective colonoscopy as a part of screening for by history of colon polyps. PROCEDURE PERFORMED: Colonoscopy. PREOPERATIVE DIAGNOSIS: Screening for history of colon polyps. IV sedation per Anesthesia. PROCEDURE: After informed consent was obtained, the patient, was brought into the endoscopy unit. IV sedation was administered by Anesthesia under continuous monitoring. Digital rectal examination was normal. Initially the Olympus CF-160 flexible video colonoscope was then inserted in the rectum, gradually advanced into the cecum without any difficulty. Careful examination was performed as the scope was gradually being withdrawn. Ileocecal valve and the appendiceal orifice were visualized and appeared normal. Prep was excellent. Mucosa of the cecum, ascending colon, transverse colon, descending colon, sigmoid colon, and rectum appeared normal. Scattered diffuse diverticulosis. Retroflexion was performed in the rectum and no lesions were seen. The patient tolerated the procedure well . IMPRESSION: Normal-appearing colon from rectum to cecum with no evidence of colorectal neoplasia Scattered diffuse diverticulosis. RECOMMENDATIONS: Findings of this examination were discussed with the patient as well as her family.. She was advised to have repeat screening colonoscopy in 10 years.
[2024-09-04 14:43] VITALS: BP 124/81; PULSE 56; RESP 16
== END 2024-09-04 15:04 | disposition home or self-care (01) ==
LOC: ORWHC2ENDO 11:11
PROVIDERS: ATTEND Internal Medicine Gastroenterology
DX: Z12.11 Encounter for screening for malignant neoplasm of colon (principal); K57.30 Diverticulosis of large intestine without perforation or abscess without bleeding; E78.5 Hyperlipidemia, unspecified; F32.A Depression, unspecified; M19.90 Unspecified osteoarthritis, unspecified site; M32.9 Systemic lupus erythematosus, unspecified; M41.9 Scoliosis, unspecified; Z86.0100 Personal history of colon polyps, unspecified; Z79.1 Long term (current) use of non-steroidal anti-inflammatories (NSAID); Z79.899 Other long term (current) drug therapy; Z88.1 Allergy status to other antibiotic agents
CPT/HCPCS: 45378; J2704